=== PATIENT | female | born 2005 | race Caucasian/White ===

== ENCOUNTER → 2024-05-20 | Day surgery (SDC) | payer BC ==
[2024-05-19 09:22] VITALS: BMI 22.0
[2024-05-20] MEDS: SODIUM CHLORIDE 0.9% 1,000 ML IV SCH (07:35)
[2024-05-20] MEDS: IV FLUID CONTINUATION 1,000 ML IV ONE (07:35)
[2024-05-20 07:46] VITALS: BP 122/72; PULSE 66; RESP 16; TEMP 98.1
--- NOTE | 2024-05-20 16:39 | P.EPPROC ---
- EP Procedure Note Electrophysiology Procedure Note: Diagnosis Recurrent presyncope Twelve-lead EKG shows sinus rhythm normal [place] narrow QRS normal ST segments heart rate 55 beats a minute Patient was tilted upright in angle of 70 degrees per protocol. Baseline blood pressure 114/69 mmHg pulse rate in the 70s No change in heart rate or blood pressure Patient complained of variety of symptoms such as lightheadedness numbness without any change in heart rate or blood pressure She was laid supine at the end of the procedure Impression Normal twelve-lead EKG Normal heart rate and blood pressure response to upright tilting transfer to
== END ==
LOC: CATHEP 07:24
PROVIDERS: ATTEND Internal Medicine Clinical Cardiac Electrophysiology
DX: R55 Syncope and collapse (principal); R00.2 Palpitations; R42 Dizziness and giddiness; R06.00 Dyspnea, unspecified; G43.909 Migraine, unspecified, not intractable, without status migrainosus; F17.290 Nicotine dependence, other tobacco product, uncomplicated; Z82.49 Family history of ischemic heart disease and other diseases of the circulatory system; Z79.899 Other long term (current) drug therapy
CPT/HCPCS: 81025; 93660